=== PATIENT | male | born 1955 | race American Indian/Alaskan Native ===

== ENCOUNTER 2018-07-16 07:01 | Day surgery (SDC) | payer MEDICARE, OTHER ==
[2018-07-16] MEDS ORDERED: NACL 0.9% 1000 ML 1,000 ML IV SCH (08:00)
[2018-07-16] MEDS ORDERED: WATER FOR IRRIG STERILE IR ONE (08:13)
[2018-07-16] MEDS ORDERED: WATER FOR IRRIG STERILE ONE (08:14)
--- NOTE | 2018-07-16 08:15 | Anesthesia Day of Surgery ---
Anesthesia Day of Surgery - Day of Surgery Patient Examined: Yes Patient H&P Reviewed: Yes Patient is NPO: Yes Beta Blockers: No
--- NOTE | 2018-07-16 08:16 | Anesthesia Consultation ---
Anesthesia Consult and Med Hx Date of service: 07/23/18 - Airway Anesthetic Teeth Evaluation: Good ROM Head & Neck: Adequate Mental/Hyoid Distance: Adequate Mallampati Class: Class III Intubation Access Assessment: Good - Pulmonary Exam CTA: Yes - Cardiac Exam Cardiac Exam: No Murmur - Pre-Operative Health Status ASA Pre-Surgery Classification: ASA3 Proposed Anesthetic Plan: MAC - Pulmonary Hx Smoking: No (exsmoker ) - Cardiovascular System Hx Hypertension: Yes
--- NOTE | 2018-07-16 08:57 | Procedure Note ---
Date of procedure: 07/16/18 Pre-op diagnosis: Dyspepsia/ Colon Polyp Screening Post-op diagnosis: other (Moderate, Distal Erosive Esophagitis/ Gastritis/ Gastric Nodule/ No Colon Polyps noted/ Solitary, Small Left Colon Diverticuli/Minor, Internal Hemorrhoid) Procedure: EGD with Biopsy and Colonoscopy Anesthesia: [facility] [place] Surgeon: TOBY PEREZ Estimated blood loss: minimal Pathology: list Specimen disposition: to lab Condition: stable Disposition: same day (Treat with PPI/ Encourage use of Probiotic (OTC)/ Avoid aspirin and NSAID for 5 days and follow up in 1 to 2 weeks ([phone]).)
[2018-07-16] MEDS ORDERED: DIPRIVAN 10 MG/ML IV ONE ×2 (08:59)
[2018-07-16] MEDS ORDERED: VERSED ONE (08:59)
--- NOTE | 2018-07-16 09:00 | Operative Report ---
PROCEDURE: Colonoscopy. INDICATIONS: This is a 62-year-old -[place] gentleman with an underlying history of polycythemia vera, who had been having some abdominal pain and discomfort. He does have a prior history of peptic ulcer disease and because of dyspepsia, EGD was done to make sure that there was not any significant upper GI pathology present. DESCRIPTION OF PROCEDURE: Procedure was done after getting informed consent with MAC anesthesia. Instrument was passed through the hypopharynx into the esophagus, which showed some moderate distal erosive esophagitis. Biopsy was done from the distal esophagus and the stomach showed a gastric nodule, possibly a fundic polyp in the gastric body and antral gastritis. No ulcers were noted in the straight or the retroverted view. The pylorus was patent. The duodenum in the first and second portion appeared normal. Biopsy was done from the gastric antrum, the angular incisura and from the gastric body over the gastric nodule, rule out for H. pylori and also for atrophic gastritis. There was minimal bleeding from the biopsy site. No complications associated with the procedure. ASSESSMENT: Dyspepsia. No peptic ulcer disease noted. Moderate distal erosive esophagitis, gastritis, gastric nodule. Patent pylorus. Again, there was minimal bleeding from the biopsy sites. No complications associated with the procedure. Plan is to treat the patient with PPI, have the patient avoid aspirin and aspirin-related products for the next few days. A colonoscopy will be done as part of colon polyp screening. Helene FOSTER was in the room throughout the entirety of the procedure. JOB# [id number] CHASITY/EFRAÍN
[2018-07-16 09:14] VITALS: BP 146/82
--- NOTE | 2018-07-16 09:22 | Operative Report ---
PROCEDURE: Colonoscopy. INDICATIONS: This is a 62-year-old -[place] gentleman with an underlying history of polycythemia vera, who had been having some abdominal pain. Last colonoscopy was done several years ago. Colonoscopy was done to assess for colon polyp screening. EGD was done prior to the colonoscopy, which showed presence of moderate distal erosive esophagitis and gastritis and a gastric nodule, possibly a fundic polyp. Initial rectal exam was unremarkable. Instrument was passed through the rectum onto the cecum, which was identified with the ileocecal valve and the appendiceal orifice. Visualization was fair to good. Cecum, ascending colon, transverse colon showed normal mucosa. There were a solitary small diverticulum noted in the left colon and the rectum showed some minor internal hemorrhoids on the retroverted view. No colon polyps were noted. No biopsies were done and there was no bleeding associated with the procedure or any complications associated with the procedure. ASSESSMENT: Colon polyp screening, no colon polyps noted, solitary small left colon diverticulum, minor internal hemorrhoid. Plan is to encourage the patient to take fiber supplements. The patient will be treated with PPI because of the EGD findings of esophagitis and gastritis. Also asked to avoid aspirin and aspirin-related products for the next few days, and some biopsies were done in the stomach and the distal esophagus and the patient will be asked to follow up in the office in 1-2 weeks' time. RNHelene was in the room throughout the entirety of the procedure. JOB# [id number] CHASITY/EFRAÍN
== END 2018-07-16 07:02 | disposition home or self-care (01) ==
LOC: GIO 07:01
DX: K29.50 Unspecified chronic gastritis without bleeding (principal); K21.0 Gastro-esophageal reflux disease with esophagitis; K64.8 Other hemorrhoids; R10.9 Unspecified abdominal pain; K57.30 Diverticulosis of large intestine without perforation or abscess without bleeding; K29.70 Gastritis, unspecified, without bleeding; I10 Essential (primary) hypertension; M19.90 Unspecified osteoarthritis, unspecified site; M06.9 Rheumatoid arthritis, unspecified; Z79.899 Other long term (current) drug therapy; Z79.01 Long term (current) use of anticoagulants; Z87.891 Personal history of nicotine dependence; Z98.890 Other specified postprocedural states
CPT/HCPCS: 43239; 45378; 88305; 88342; J2250; J2704; J7030